=== PATIENT | female | born 1990 | race Caucasian/White ===

== ENCOUNTER 2025-04-17 07:40 | Emergency (ER) | payer MEDICAID ==
[~2025-04-17] VITALS: Ht 172.7 cm; Wt 65.1 kg
[2025-04-17 07:45] VITALS: TEMP 97.7
--- NOTE | 2025-04-17 08:23 | Physician Documentation ---
History of Present Illness ~ General Chief Complaint: See Chief Complaint Stated Complaint: CONGESTION Time Seen by MD: 08:22 OK to notify your PCP?: Yes Source: patient, RN/MD, RN notes reviewed, old records Mode of Arrival: POV Exam Limitations: no limitations History of Present Illness Initial Comments This pleasant 35-year-old female who is homeless in multiple cities states that she has been feeling weak tired fatigued she does not have access to her nebulizer or metered-dose inhaler she has been having a cough congestion for the last several days or so she feels short of breath when she lays down. She is producing white sputum. She thinks she has COVID has been exposed to it. She is here for evaluation has no other complaints at this time. She denies any fevers or chills. She is wearing a mask. He is now here for evaluation and care. She states she has a UTI at another hospital but was never treated or she never picked up the antibiotics. He has no urinary symptoms at this time. Her last menstrual period was three weeks ago. She denies a chance of . Medication Reconciliation Allergies: Uncoded Allergies: PCN (Allergy, Severe, 04/17/25) Scheduled Dexamethasone* (Decadron*), 2 TAB PO DAILY Hydroxyzine Hcl* (Atarax*), 1 TAB PO HSMR1 Scheduled PRN albuterol inhaler (Pro-Air Inhaler), 1-2 PUFFS PO Q4H PRN for shortness of breath Past Medical History Past Medical History: Asthma Other Past Medical History: Endometriosis Other Past Surgical History: Ectopic Smoking Status: Never smoker Alcohol Use: None Drug Use: marijuana Review of Systems All Other Systems at this time: Reviewed and Negative Physical Exam Physical Exam Vital Signs: RN Vital Signs have been reviewed: Yes, Temperature: 97.7, Source: Temporal, Heart Rate: 82, Respiratory Rate: 15, BP: 114/77, Pulse Oximetry: 96, Weight: 65.080 Physical Exam General: The patient is well developed, well nourished, nontoxic appearing and is in no acute distress. Skin: [place], warm and dry with no rashes. HEENT: Head was normocephalic and atraumatic. Eyes - pupils equal, round, reactive to light and accommodation. Extraocular movements were intact. Conjunctivae were nonicteric. The mouth and oropharynx were clear with moist mucous membranes. There were no pharyngeal exudates or erythema. Neck: Supple and nontender. There was no jugular venous distention, lymphadenopathy, thyromegaly or masses. Chest: Clear to auscultation bilaterally without wheezes, rales or rhonchi. No accessory muscle use. No dullness to percussion. However trace rhonchi with cough short shallow breath sounds Heart: Rate regular and rhythmic. S1, S2. No murmurs. Palpation of the chest wall was normal. No rubs or thrills. Abdomen: Soft, nontender and nondistended. Positive bowel sounds. No guarding or rebound. No hepatosplenomegaly or palpable masses. Extremities: No cyanosis, clubbing or edema. The patient moves all extremities. Pulses were equal and symmetric. Neurologic: Motor sensory grossly intact. Psychologic: The patient was oriented to person, place and time. The patient d emonstrated appropriate judgement and insight. Progress Results/Orders Reviewed/noted all lab results: Yes Results/Orders Orders - MALLORIE PERLA MD Chest,Two Views (04/17/25 08:32) Svn Treatment (04/17/25 08:32) Completed Orders - MALLORIE PERLA MD Chest,Two Views (04/17/25 08:32) Ipratropium/Albuterol Nebule (Ipratrop/A (04/17/25 08:35) Urinalysis, Cult If Indicated (04/17/25 09:47) Dexamethasone Tablet (Decadron Tablet) (04/17/25 09:55) Medications Received in ER Medications (Trade) Dose Ordered Sig/Kalin Route PRN Reason Start Time Stop Time Status Last Admin Dose Admin (ipratrop/ albuterol 0.5-3(2.5) MG/3ml nebule) 3 ml ONCE ONCE NEB 04/17/25 08:35 04/17/25 08:36 DC 04/17/25 08:57 3 ML Vital Signs 04/17/25 04/17/25 04/17/25 04/17/25 07:45 08:22 08:22 09:01 Temp 97.7 Pulse 82 68 68 Resp 15 17 18 21 B/P (MAP) 114/77 106/83 (91) Pulse Ox 96 99 100 O2 Delivery Room Air* O2 Flow Rate 0 0 FiO2 N/A 04/17/25 09:06 Pulse 76 Resp 20 Pulse Ox 100 O2 Delivery Room Air* O2 Flow Rate 0 FiO2 N/A Laboratory Tests Test 04/17/25 08:37 Urine Specimen Description Cln catch midstream Urine Color Yellow Urine Clarity Clear Urine pH 6.0 Urine Specific [place] 1.020 Urine Protein Negative Urine Glucose (UA) Negative Urine Ketones Negative Urine Occult Blood Negative Urine Nitrite Negative Urine Bilirubin Negative Urine Urobilinogen 0.2 Urine Leukocyte Esterase Negative Urine Culture Indicated Not ind Volume Urine Centrifuged 10 ml Urine Comment SARS-CoV-2 Antigen (Rapid) Positive *A Re-Evaluation Re-Evaluation : Re-Evaluation: Improved Progress Patient was seen and examined. Patient is given reassurance. The patient was given steroids. The patient received a neb treatment. Her breath sounds were a bit tight but otherwise negative exam. Patient is oxygen saturation was reassuring at 97% room air. Patient was found to have COVID. Patient was given steroids. Discharge medications included metered-dose inhaler including steroids also patient complained of insomnia and allergy type of complaints and was requesting a refill on hydroxyzine. Patient appears well oxygenation is good we discussed COVID and exposures to other people who are susceptible. Patient will return if her symptoms worsens. Pulse oximetry monitor interpretation shows normal oxygenation at 97% room air, normal, my interpretation. Urinalysis is negative EKG/XRAY/CT/US/VASC/MRI Chest X-Ray : Additional Comments Indication: CHEST PAIN Technique: Frontal and lateral view of the chest was obtained Comparison: None FINDINGS: Lines and Tubes: None Lungs: Clear Pleura: No effusion. No pneumothorax. Cardiomediastinal contours: Unremarkable Bones: Unremarkable IMPRESSION: No evidence of acute disease. Medical Decision Making Additional info obtained from: old records Departure Disposition: HOME / SELF CARE / HOMELESS Impression: Primary Impression: Asthma Qualified Codes: J45.20 - Mild intermittent asthma, uncomplicated Additional Impressions: COVID Seasonal allergies Condition: Stable Referrals: NO PRIMARY CARE PROVIDER (PCP) Prescriptions Dexamethasone* (Decadron*) 4 Mg Tablet 2 TAB PO DAILY for 5 Days, #10 TAB Prov: MALLORIE PERLA MD 04/17/25 Hydroxyzine Hcl* (Atarax*) 25 Mg Tablet 1 TAB PO HSMR1 for 30 Days, #60 TAB Prov: MALLORIE PERLA MD 04/17/25 albuterol inhaler (Pro-Air Inhaler) 8.5 Gm Inhaler 1-2 PUFFS PO Q4H PRN for shortness of breath, #1 INH Prov: MALLORIE PERLA MD 04/17/25 Education Educated: Patient Educated regarding: diagnosis, need for follow up Signature Scribe Signature: , Attestation: The note accurately reflects work and decisions made by me.Mallorie Perla MD 04/17/25 08:23 MALLORIE PERLA MD Apr 17, 2025 08:23
[2025-04-17] MEDS: ipratropium/albuterol 3ml nebule NEB ONE (08:57)
[2025-04-17 09:01] VITALS: PULSE 68; RESP 21; O2SAT 100
[2025-04-17 09:06] VITALS: PULSE 76; RESP 20; O2SAT 100
--- NOTE | 2025-04-17 09:35 | RADIOLOGY REPORT ---
CHEST RADIOGRAPH Indication: CHEST PAIN Technique: Frontal and lateral view of the chest was obtained Comparison: None FINDINGS: Lines and Tubes: None Lungs: Clear Pleura: No effusion. No pneumothorax. Cardiomediastinal contours: Unremarkable Bones: Unremarkable IMPRESSION: No evidence of acute disease.
[2025-04-17] MEDS ORDERED: HYDR-3686 PO (09:53)
[2025-04-17] MEDS ORDERED: ALBU8HFA PO (09:53)
[2025-04-17] MEDS ORDERED: DEC4T PO (09:53)
[2025-04-17 10:08] LABS: LEUKOCYTE ESTERASE ,URINE NEGATIVE (Neg); NITRITES, URINE NEGATIVE (Neg); OCCULT BLOOD,URINE NEGATIVE (Neg)
[2025-04-17 10:13] LABS: UA COLLECTION TYPE CLN CATCH MIDSTREAM
[2025-04-17 10:37] VITALS: BP 114/68; PULSE 61; RESP 17; O2SAT 99
[2025-04-18] MEDS ORDERED: ROBDML PO (11:41)
== END 2025-04-17 10:43 | disposition home or self-care (01) ==
LOC: ER 07:42
DX: U07.1 COVID-19 (principal); J45.909 Unspecified asthma, uncomplicated; F12.90 Cannabis use, unspecified, uncomplicated; Z20.822 Contact with and (suspected) exposure to COVID-19
CPT/HCPCS: 36415; 71046; 81003; 87811; 94640; 94760; 99284

== ENCOUNTER 2025-04-18 09:19 | Emergency (ER) | payer MEDICAID ==
[~2025-04-18] VITALS: Ht 172.7 cm; Wt 78.2 kg
[~2025-04-18 09:19] MED LIST: ALBU8HFA PO; DEC4T PO; HYDR-3686 PO
[2025-04-18 09:30] VITALS: BP 109/68; TEMP 97.4
[2025-04-18] MEDS ORDERED: ipratropium/albuterol 3ml nebule NEB PRN (09:45)
[2025-04-18] MEDS: ibuprofen tablet 400 MG TABLET PO ONE (09:49)
--- NOTE | 2025-04-18 09:49 | Physician Documentation ---
HPI ~ General Chief Complaint: Medication Request Stated Complaint: BREATHING TREATMENT Time Seen by MD: 09:35 OK to notify your PCP?: Yes Source: patient Mode of Arrival: POV Exam Limitations: no limitations History of Present Illness HPI Comments 35-year-old female presents for shortness of breath, productive cough, she has asthma in his requesting a breathing treatment. She was seen here yesterday and diagnosed with the COVID which she has been having symptoms for the past 3 days. She was prescribed a inhaler but due to insurance difficulty she was unable to pick it up at the pharmacy yesterday. She states that she is feeling worse today than she did yesterday in his having more trouble breathing today. Yesterday she had a fever today she has no fever. She has not taken any medications prior to arrival for her symptoms. Denies cardiac history. She reports she did stay in a place for 2 weeks that had black mold. Medication Reconciliation Allergies: Coded Allergies: Penicillins (Verified Allergy, Unknown, ANAPHALAXIS, 04/18/25) Scheduled Dexamethasone* (Decadron*), 2 TAB PO DAILY Hydroxyzine Hcl* (Atarax*), 1 TAB PO HSMR1 Scheduled PRN Guaifenesin/D-Methorphan Hb (Robitussin Dm), 5 ML PO Q6H PRN PRN for cough & congestion albuterol inhaler (Pro-Air Inhaler), 1-2 PUFFS PO Q4H PRN for shortness of breath Past Medical History Past Medical History: Asthma Other Past Surgical History: Ectopic Alcohol Use: None Drug Use: marijuana Review of Systems All Other Systems at this time: Reviewed and Negative Physical Exam Physical Exam Vital Signs: RN Vital Signs have been reviewed: Yes, Temperature: 97.4, Source: Temporal, Heart Rate: 79, Respiratory Rate: 20, BP: 109/68, Pulse Oximetry: 98, Weight: 78.200 Oxygen Flow Rate: 0 Pulse Oximetry Reflects: adequate oxygenation Physical Exam General: Alert, no apparent distress. HEENT: PERRL, EOMI, no injection, moist mucous membranes. Neck: Full range of motion. Respiratory: No respiratory distress. Bilateral expiratory and inspiratory wheezes. Right lower lobe has inspiratory crackles. Chest: No accessory muscle use. Cardiovascular: Regular rate and rhythm, no murmurs. Gastrointestinal: Soft, nontender, nondistended. Bowels sounds present. Extremities: Normal range of motion, no deformity. Neurologic: Oriented x4. Psychiatric: Normal mood and affect. Skin: Normal color, warm and dry. No edema, no ecchymosis. Progress Results/Orders Reviewed/noted all lab results: Yes Results/Orders Orders - JIE WALSH PERFORMAN[employer] CONSULTANT Chest,Single View (04/18/25 09:42) Completed Orders - JIE WALSH PERFORMANCE CONSULTANT Chest,Single View (04/18/25 09:42) Ibuprofen Tablet (Motrin Tablet) (04/18/25 09:45) Ipratropium/Albuterol Nebule (Ipratrop/A (04/18/25 09:45) Ipratropium/Albuterol Nebule (Ipratrop/A (04/18/25 10:50) Medications Received in ER Medications (Trade) Dose Ordered Sig/Kalin Route PRN Reason Start Time Stop Time Status Last Admin Dose Admin (Motrin tablet) 800 mg ONCE ONCE PO 04/18/25 09:45 04/18/25 09:46 DC 04/18/25 09:49 800 MG (ipratrop/ albuterol 0.5-3(2.5) MG/3ml nebule) 3 ml ONCE NEB 04/18/25 10:50 04/18/25 11:48 DC 04/18/25 10:55 3 ML Vital Signs 04/18/25 04/18/25 04/18/25 09:30 10:56 11:01 Temp 97.4 Pulse 79 68 57 Resp 20 18 18 B/P (MAP) 109/68 Pulse Ox 98 98 98 O2 Delivery Room Air* Room Air* O2 Flow Rate 0 0 0 FiO2 21 21 EKG/XRAY/CT/US/VASC/MRI Chest X-Ray : Additional Comments Chest x-ray: as interpreted by me; no large effusion, no large infiltrate, normal mediastinum. Medical Decision Making Additional info obtained from: old records Findings 35-year-old female who returns for COVID symptoms, shortness of breath. She is requesting an albuterol treatment as she was unable to pic up her prescription at the pharmacy due to insurance issues for the albuterol inhaler. She reports that she is unable to afford any [id number] medications in his requesting Robitussin D to be ordered. I ordered this to her pharmacy. As she was feeling worse today than she was yesterday I repeated the chest x-ray. Physical exam she was having bilateral inspiratory and expiratory wheezes and she had right lower lobe crackles. Her chest x-ray was clear. I gave her a DuoNeb treatment instead of albuterol to help dry up her cough. She reports that she was feeling much better after the treatment. I also gave her some ibuprofen to help with her general discomfort. Differential Dx:Considerations: Include: Adverse circumstances, Economic, Medical services unavail., Medication refill, Medication non-compliance Departure Disposition: HOME / SELF CARE / HOMELESS Impression: Primary Impression: Asthma Additional Impression: COVID Condition: Stable Discharge Instructions: Upper Respiratory Infection, Adult, [id number] Additional Instructions: Return back here for any new or worsening symptoms. Please follow up your insurance on Saturday so you can get your albuterol inhaler prescription. COVID is a virus and is usually self-limiting about 7-10 days before your feeling completely normal again. If you develop a worsening cough Robitussin D can be very helpful or honey. You can continue to use Tylenol and/or ibuprofen for pain relief and fever control. Referrals: NO PRIMARY CARE PROVIDER (PCP) Prescriptions Guaifenesin/D-Methorphan Hb (Robitussin Dm) 10 Ml Syrup 5 ML PO Q6H PRN PRN for cough & congestion for 6 Days, #120 ML NEEDED Prov: JIE WALSH 04/18/25 Education Educated: Patient Educated regarding: diagnosis, treatment, prognosis, need for follow up Additional Comment Medical Screen Exam This patient recieved a medical screening examination. After reviewing the individual's medical complaints with presenting symptoms and performing an appropriate physical examination, it was determined that no immediate life-t hreatening emergency medical condition is present. This individual is also not a women having contractions. Signature Scribe Signature: . Attestation: Scribed for Jie Walshp by Jie Grant NP . 04/18/25 11:56 Parts of this note were created using [employer] voice recognition software program. While efforts were made to correct any mistakes made by this voice recognition software program, nonsensical phrases may remain in this note. In addition, there may be errors and syntax, grammar, content and spelling. JIE WALSH [facility] Apr 18, 2025 09:49
--- NOTE | 2025-04-18 10:08 | RADIOLOGY REPORT ---
CHEST RADIOGRAPH Indication: covid+, sob Technique: Single frontal view of the chest was obtained COMPARISON: DI CHEST,TWO VIEWS on DOS: 04/17/25 FINDINGS: Lines and Tubes: None Lungs: Clear Pleura: No effusion. No pneumothorax. Cardiomediastinal contours: Unremarkable Bones: Unremarkable IMPRESSION: 1. No acute disease.
[2025-04-18] MEDS: ipratropium/albuterol 3ml nebule NEB SCH (10:55)
[2025-04-18 10:56] VITALS: PULSE 68; RESP 18; O2SAT 98
[2025-04-18 11:01] VITALS: PULSE 57; RESP 18; O2SAT 98
[2025-04-18] MEDS ORDERED: ROBDML PO (11:41)
== END 2025-04-18 11:45 | disposition home or self-care (01) ==
LOC: ER 09:20
DX: U07.1 COVID-19 (principal); J45.909 Unspecified asthma, uncomplicated; Z88.0 Allergy status to penicillin
CPT/HCPCS: 71045; 94640; 94760; 99283

== ENCOUNTER 2025-04-26 15:15 | Emergency (ER) | payer MEDICAID ==
[~2025-04-26] VITALS: Ht 172.7 cm; Wt 77.3 kg
[~2025-04-26 15:15] MED LIST changes: -DEC4T PO
[2025-04-26 15:20] VITALS: BP 131/81; PULSE 78; RESP 16; TEMP 98.4; O2SAT 99
--- NOTE | 2025-04-26 15:28 | Physician Documentation ---
History of Present Illness ~ Chief Complaint: Nose Pain Stated Complaint: SINUS INFECTION Time Seen by MD: 16:03 HPI This is a 35-year-old female who presents with one-week of bilateral sinus pain and pressure. Patient states the pressure is worse on the right maxillary sin us. Patient states symptoms have been going on for a little over a week and denies any fevers or chills or shortness of breath or chest pain or abdominal pain or nausea, vomiting, diarrhea. Patient has no other concern or complaint at this time. Medication Reconciliation Allergies: Coded Allergies: Penicillins (Verified Allergy, Unknown, ANAPHALAXIS, 04/26/25) Scheduled Hydroxyzine Hcl* (Atarax*), 1 TAB PO HSMR1 Scheduled PRN albuterol inhaler (Pro-Air Inhaler), 1-2 PUFFS PO Q4H PRN for shortness of breath Discontinued Medications Dexamethasone* (Decadron*), 2 TAB PO DAILY Discontinued Reason: Auto Discontinued Guaifenesin/D-Methorphan Hb (Robitussin Dm), 5 ML PO Q6H PRN PRN for cough & congestion Discontinued Reason: Auto Discontinued Past Medical History Past Medical History: Asthma Other Past Surgical History: Ectopic Alcohol Use: None Drug Use: marijuana Review of Systems ROS As stated above in the HPI, otherwise all systems are reviewed and negative. Constitutional: Denies: chills, fever, weakness Eyes: Denies: pain, blurred vision ENT: Denies: ear pain, nose pain, throat pain, mouth pain Respiratory: Denies: cough, shortness of breath Cardiovascular: Denies: chest pain, palpitations Gastrointestinal: Denies: abdominal pain, nausea, vomiting Genitourinary: Denies: burning, dysuria Female Genitalia: Denies: vaginal discharge, pelvic pain Neurological: Denies: headache, dizziness Musculoskeletal: Denies: pain, swelling Integumentary: Denies: rash, lesions Allergic/Immunologic: Denies: hives, itching Hematologic/Lymphatic: Denies: no symptoms reported Psychiatric: Denies: depression, anxiety Physical Exam Vital Signs: Temperature: 98.4, Source: Temporal, Heart Rate: 78, Respiratory Rate: 16, BP: 131/81, Pulse Oximetry: 99, Weight: 77.270 Oxygen Flow Rate: 0 Physical Exam General: Awake and Alert, no acute distress. HEENT: Patient on exam does have significant tenderness to palpation of the right maxillary sinus and frontal sinuses. Patient's turbinates are boggy. Conjunctiva pink, Sclera clear, Mucus Membranes moist. Neck: Supple without masses and tenderness. Resp: Unlabored. Lungs clear to auscultation bilaterally. Heart: Regular Rate and rhythm, normal S1 and S2 without murmur, rub or gallop. Abdomen: Soft and non tender no organomegaly Extremities: No cyanosis,clubbing or edema. Skin: Warm and Dry. Progress Results/Orders Results/Orders Vital Signs 04/26/25 15:20 Temp 98.4 Pulse 78 Resp 16 B/P (MAP) 131/81 Pulse Ox 99 O2 Flow Rate 0 Medical Decision Making Findings This is a 35-year-old female who presents with one-week of bilateral sinus pain and pressure. Patient states the pressure is worse on the right maxillary sinus. Patient states symptoms have been going on for a little over a week and denies any fevers or chills or shortness of breath or chest pain or abdominal pain or nausea, vomiting, diarrhea. Patient has no other concern or complaint at this time. Patient was given dose of azithromycin 500 mg one tab by mouth in the ED tonight. Prescription of azithromycin sent to patient's pharmacy to be taken as directed one tab by mouth for two more days. Patient will follow up with primary care in 2-5 days if no better as needed sooner. Return to ED with any worsening, concerning or changing symptoms. Departure Disposition: HOME / SELF CARE / HOMELESS Impression: Primary Impression: Sinusitis Qualified Codes: J01.00 - Acute maxillary sinusitis, unspecified Condition: Improved Discharge Instructions: Sinus Infection, Adult, [id number] Additional Instructions: Patient was given dose of azithromycin 500 mg one tab by mouth in the ED tonight. Prescription of azithromycin sent to patient's pharmacy to be taken as directed one tab by mouth for two more days. Patient will follow up with primary care in 2-5 days if no better as needed sooner. Return to ED with any worsening, concerning or changing symptoms. Referrals: NO PRIMARY CARE PROVIDER (PCP) Prescriptions Azithromycin (Zithromax) 250 Mg Tablet 2 TAB PO DAILY for 2 Days, #4 TAB Prov: SHERYL ARMAS 04/26/25 Signature Scribe Signature: No scribe Attestation: No scribe NAOMY VILLALBA Apr 26, 2025 15:28 SHERYL ARMAS [facility] Apr 26, 2025 16:58
[2025-04-26] MEDS ORDERED: AZIT-164 PO (17:03)
== END 2025-04-26 17:16 | disposition home or self-care (01) ==
LOC: ER 15:17
DX: J32.0 Chronic maxillary sinusitis (principal); J32.1 Chronic frontal sinusitis; J45.909 Unspecified asthma, uncomplicated; F12.90 Cannabis use, unspecified, uncomplicated; Z87.59 Personal history of other complications of pregnancy, childbirth and the puerperium; Z88.0 Allergy status to penicillin
CPT/HCPCS: 99283

== ENCOUNTER 2025-05-06 07:17 | Emergency (ER) | payer MEDICAID ==
[~2025-05-06] VITALS: Ht 172.7 cm; Wt 77.3 kg
[2025-05-06 07:25] VITALS: TEMP 97.9
--- NOTE | 2025-05-06 07:31 | Physician Documentation ---
History of Present Illness ~ Chief Complaint: Foot pain Stated Complaint: FOOT PAIN Time Seen by MD: 07:27 HPI This is a pleasant homeless 35-year-old female who presents for evaluation of bilateral feet pain, that she describes as pins and needles, that has been present for several months, because she has to walk everywhere. Palliated with the position of comfort. Ibuprofen helps. However for the last couple of days she had developed occult "ellow bubble on the back of her left heel that is much more painful and impedes her ambulation. Did not attempt to treat it with the antibiotics. Allergic to penicillins. LMP: A month ago Denies any other symptoms such as fever, chills, chest pain, difficulty breathing, nausea, vomiting, diarrhea, abdominal pain. She denies any concerns for tobacco, alcohol or illicit substances use. Tetanus witin 5 years: Yes Medication Reconciliation Allergies: Coded Allergies: Penicillins (Verified Allergy, Unknown, ANAPHALAXIS, 04/26/25) Scheduled Hydroxyzine Hcl* (Atarax*), 1 TAB PO HSMR1 Scheduled PRN albuterol inhaler (Pro-Air Inhaler), 1-2 PUFFS PO Q4H PRN for shortness of breath Discontinued Medications Azithromycin (Zithromax), 2 TAB PO DAILY Discontinued Reason: Auto Discontinued Past Medical History Past Medical History: Asthma Other Past Surgical History: Ectopic Alcohol Use: None Drug Use: marijuana Review of Systems ROS 10 point review of systems was performed and unless noted above in HPI is neg ative for acute process/complaint. Physical Exam Vital Signs: Temperature: 97.9, Source: Temporal, Heart Rate: 70, Respiratory Rate: 18, BP: 120/65, Pulse Oximetry: 99, Weight: 77.270 Oxygen Flow Rate: 0 Physical Exam Physical examination: GENERAL: Awake, alert, oriented, GCS 15, no apparent distress, non-toxic appearing, answers questions, follows commands appropriately. Pleasant and well kept. No stigmata of homelessness. HEENT: Atraumatic, normocephalic, pupils equal, extraocular muscles intact Active gross movements, sclerae anicteric, mucus membranes moist, no stridor. NECK: Midline, no JVD CARDIOVASCULAR: Good skin perfusion without evidence of pallor, mottling. PULMONARY: Nonlabored, symmetric chest rise, no audible wheezing, no accessory muscle use, no respiratory distress, speaking in full sentences. GASTROINTESTINAL: Not distended. NEUROLOGIC: Lucid with normal mental status. Normal facial symmetry. Moves all extremities symmetrically and with purpose. No truncal ataxia. Speech is fluid without evidence of dysarthria or aphasia, no focal deficits appreciated. EXTREMITIES: Acute deformities Skin: warm, dry PSYCHIATRIC: Normal affect, normal insight, normal concentration. Focused exam: Erythema surrounding her left heel, calor, no obvious fluctuance to suspect an abscess. No crepitus. Full range of motion. Palpation notes that it is tender reproducing chief complaint. Progress Results/Orders Results/Orders Orders - HOMAR TRISTAN DO Hcg, Ur Ql (05/06/25 07:27) Drug Screen, Urine (05/06/25 07:27) Completed Orders - HOMAR TRISTAN DO Urinalysis, Cult If Indicated (05/06/25 07:27) Vital Signs 05/06/25 07:25 Temp 97.9 Pulse 70 Resp 18 B/P (MAP) 120/65 Pulse Ox 99 O2 Flow Rate 0 Laboratory Tests Test 05/06/25 07:07 Urine Specimen Description Cln catch midstream Urine Color Straw Urine Clarity Clear Urine pH 7.5 Urine Specific [place] 1.010 Urine Protein Negative Urine Glucose (UA) Negative Urine Ketones Negative Urine Occult Blood Negative Urine Nitrite Negative Urine Bilirubin Negative Urine Urobilinogen 0.2 Urine Leukocyte Esterase Negative Urine Culture Indicated Not ind Volume Urine Centrifuged 10 ml Urine HCG, Qualitative Negative Urine Comment Drug Screen Comment Medical Decision Making Findings Facility Status: ED Holds, [facility] process The plan was discussed with the patient, who demonstrates clear understanding of the plan and is in agreement with the plan unless otherwise noted in the chart. All questions have been answered, all concerns were addressed unless otherwise documented. I was available throughout their ED stay for frequent reassessment and questions. Differential Diagnoses (considered and possible or likely): [Heel cellulitis, less likely abscess, less likely necrotizing infection, unlikely to be osteomyel itis.] ??Differential Diagnoses (considered and unlikely, not requiring evaluation currently): [No evidence of traumatic injury] [facility] Data Please see HPI for the following: Independent Historians and external Records Review. Historian: [Patient] Independent Historians: ?[None] Medication Management: [Reviewed medication list] Social History and determinants: [Reviewed] Please see the body of the note for the following: Any independent interpretations of ECG, imaging studies. All vitals signs/haemodynamics, ordered tests were independently reviewed and interpreted by myself. Nursing triage complaint and vitals reviewed, additional nursing notes were reviewed as available and I agree unless otherwise noted or documented in contradiction in the chart Vital Signs: Independently reviewed Labs: Independently interpreted Imaging: Independently interpreted Old Medical Records: Independently reviewed, see HPI for relevant summary and i nformation Pulse Oximetry: [100%] interpreted as [normal on room air] by me Additionally notably showing: [Hemodynamically stable] Tests considered but not ordered include: [Hematologic workup and imaging has been considered but does not appear to be necessary given clinical nature of diagnosis] Social Determinants of Health Impact: Patient was evaluated in [facility], [facility] [place] to healthcare due to below par ratio of patient to medical providers. [] Comorbid Conditions Impacting Present Evaluation and Care/Treatment: [] Management Discussions with other Healthcare Providers: [Not] Treatment and Disposition Medication Management (Given or considered): []. See EMR for details Consideration for Hospitalization/Escalation/Deescalation of Care: Admission for observation has been considered, [however the patient is able to tolerate p.o., their symptoms are controlled, they are able to rely on oral medications, and their chief complaint/diagnosis can be managed on outpatient basis.] ?ED Course:?[No clinical deterioration] patient is allergic to penicillins. We will have to check for . ?Shared decision making:?[Patient is hemodynamically stable for discharge home with follow with their primary care provider. [ ] Specific and cautious return precautions provided and discussed with full understanding. Any incidental fin dings were also discussed and follow up recommendations given. [] All questions answered. Patient/family were able to verbalize back return precautions. Patient/family agree to plan. Copies of imaging and laboratory studies were provided.] Code status:?FULL Please see the full Electronic Medical Record for full details of nursing documentation, medications list, other records of complete past medical history and conditions, vital signs, laboratory studies, and any radiologic study interpretations by radiologists. Portions of this note were completed using [facility] dictation software and as a result there may exist minor errors in s pelling. I have reviewed elements of past family and social history and agree as included in note. Departure Disposition: 01 HOME / SELF CARE / HOMELESS Impression: Primary Impression: Cellulitis of heel, left Condition: Improved Discharge Instructions: Cellulitis Referrals: NO PRIMARY CARE PROVIDER (PCP) Prescriptions Sulfamethoxazole/Trimethoprim (Bactrim Ds Tablet) 800 Mg-160 Mg Tablet 1 TAB PO Q12H for 7 Days, #14 TAB Prov: HOMAR TRISTAN DO 05/06/25 Education Educated: Patient Educated regarding: diagnosis, treatment, prognosis, need for follow up Signature Scribe Signature: No scribe Attestation: This note accurately reflects clinical decisions, work performed by myself, Homar Tristan, HOMAR MCDANIEL DO May 06, 2025 07:31
[2025-05-06 07:53] LABS: LEUKOCYTE ESTERASE ,URINE NEGATIVE (Neg); NITRITES, URINE NEGATIVE (Neg); OCCULT BLOOD,URINE NEGATIVE (Neg)
[2025-05-06 07:57] LABS: UA COLLECTION TYPE CLN CATCH MIDSTREAM
[2025-05-06 07:59] LABS: URINE HCG NEGATIVE (NEG)
[2025-05-06 08:05] LABS: URINE AMPHETAMINE SCREEN NEGATIVE (Neg); URINE BARBITUATE SCREEN NEGATIVE (Neg); URINE BENZODIAZEPINES SCREEN NEGATIVE (Neg); URINE CANNABINOID SCREEN POSITIVE (Neg); URINE COCAINE SCREEN NEGATIVE (Neg); URINE METHADONE SCREEN NEGATIVE (Neg); URINE OPIATE SCREEN NEGATIVE (Neg); URINE PHENCYCLIDINE SCREEN NEGATIVE (Neg)
[2025-05-06] MEDS ORDERED: SULF1TAB49 PO (08:06)
[2025-05-06 08:24] VITALS: BP 108/60; PULSE 81; RESP 18; O2SAT 100
[2025-05-07] MEDS ORDERED: ALBU8HFA PO (14:26)
== END 2025-05-06 08:26 | disposition home or self-care (01) ==
LOC: ER 07:17
DX: L03.116 Cellulitis of left lower limb (principal); J45.909 Unspecified asthma, uncomplicated; F12.90 Cannabis use, unspecified, uncomplicated; Z88.0 Allergy status to penicillin; Z79.899 Other long term (current) drug therapy; Z59.00 Homelessness unspecified
CPT/HCPCS: 80305; 81003; 81025; 99283

== ENCOUNTER 2025-05-07 12:53 | Emergency (ER) | payer MEDICAID ==
[~2025-05-07] VITALS: Ht 172.7 cm; Wt 77.2 kg
[~2025-05-07 12:53] MED LIST changes: +SULF1TAB49 PO
[2025-05-07 13:12] VITALS: BP 118/80; PULSE 90; RESP 14; O2SAT 100
[2025-05-07] MEDS ORDERED: ALBU8HFA PO (14:26)
--- NOTE | 2025-05-07 14:27 | Physician Documentation ---
History of Present Illness ~ Chief Complaint: Cold, cough & congestion Stated Complaint: BREATHING TREATMENT-ASTHMA Time Seen by MD: 14:08 HPI This is a 35-year-old female with a history of asthma who presents with two days of cough and scratchy throat, patient reports occasional chills without fever, patient reports that she has had some wheezing and feeling of asthma exacerbation and is without her usually prescribed albuterol inhaler. Patient reports no other acute symptoms or concerns including no difficulty breathing fo r chest pain. Medication Reconciliation Allergies: Coded Allergies: Penicillins (Verified Allergy, Unknown, ANAPHALAXIS, 04/26/25) Scheduled Hydroxyzine Hcl* (Atarax*), 1 TAB PO HSMR1 Sulfamethoxazole/Trimethoprim (Bactrim Ds Tablet), 1 TAB PO Q12H Scheduled PRN albuterol inhaler (Pro-Air Inhaler), 1-2 PUFFS PO Q4H PRN for shortness of breath albuterol inhaler (Pro-Air Inhaler), 1-2 PUFFS PO Q4H PRN for shortness of breath Past Medical History Past Medical History: Asthma Other Past Surgical History: Ectopic Alcohol Use: None Drug Use: marijuana Review of Systems ROS As stated above in the HPI, otherwise all systems are reviewed and negative. Physical Exam Vital Signs: Temperature: 97.6, Source: Temporal, Heart Rate: 90, Respiratory Rate: 14, BP: 118/80, Pulse Oximetry: 100, Weight: 77.200 Oxygen Flow Rate: 0 Physical Exam VITALS: Reviewed and as above. GENERAL: Alert, nontoxic appearing, no apparent distress. HEENT: Pharynx nonerythematous, no tonsillar swelling or exudates RESPIRATORY: No increased work of breathing, no respiratory distress, speaking in full clear sentences, clear lung sounds in all watkins, no wheezing, no stridor CV: Regular rate and rhythm no murmur Progress Results/Orders Results/Orders Vital Signs 05/07/25 05/07/25 13:12 14:33 Temp 97.6 97.6 Pulse 90 Resp 14 B/P (MAP) 118/80 Pulse Ox 100 O2 Flow Rate 0 Laboratory Tests Test 05/07/25 13:17 SARS-CoV-2 Antigen (Rapid) Negative Medical Decision Making Findings This 35 year-old female history of asthma, presented with two days of cough, scratchy throat, and occasional wheezing described as similar to feeling of asthma exacerbation. Patient reported occasional chills without fever, though it was reassuring patient reported no chest pain or shortness of breath, physical exam was benign with clear lung sounds in all watkins, patient is otherwise well appearing and symptoms are consistent with an uncomplicated upper respiratory tract infection with potential mild asthma exacerbation. Patient vital signs stable without evidence of hypoxia.As patient does not currently have a rescue inhaler, she will be discharged with a new rescue inhaler and provided home care instructions, and return precautions. Differential Dx:Considerations: Include: Allergic rhinitis, Influenza, Pharyngitis-Diphtheria, Pharyngitis-Streptoccal, Pharyngitis-Viral, Pneumonia, Pnuemonitis, URI Departure Time of Disposition: 14:27 Impression: Primary Impression: Acute respiratory infection Condition: Improved Discharge Instructions: Upper Respiratory Infection, Adult Additional Instructions: Please use the inhaler as needed for wheezing. You may use Tylenol and ibuprofen as needed for pain and fever as directed by [id number] packaging. Warm fluids and honey may help with sore throat and cough. Please see your primary care provider for asthma preventative medications. Please follow up with your primary care provider in the next few days. Please return to the emergency department for any new or worsening concerning symptoms. Referrals: NO PRIMARY CARE PROVIDER (PCP) Prescriptions albuterol inhaler (Pro-Air Inhaler) 8.5 Gm Inhaler 1-2 PUFFS PO Q4H PRN for shortness of breath, #1 INH Prov: NAOMY VILLALBA 05/07/25 Education Educated: Patient Educated regarding: diagnosis, treatment, prognosis, need for follow up Signature Scribe Signature: No Scribe Attestation: The note accurately reflects work and decisions made by me.JEAN CARLOS Florian 05/09/25 18:03 NAOMY VILLALBA May 07, 2025 14:27
[2025-05-07 14:33] VITALS: TEMP 97.6
== END 2025-05-07 14:34 | disposition home or self-care (01) ==
LOC: ER 12:54
DX: J22 Unspecified acute lower respiratory infection (principal); J45.909 Unspecified asthma, uncomplicated; F12.90 Cannabis use, unspecified, uncomplicated; Z88.0 Allergy status to penicillin; Z79.899 Other long term (current) drug therapy; Z20.822 Contact with and (suspected) exposure to COVID-19
CPT/HCPCS: 36415; 87811; 99283

== ENCOUNTER 2025-05-12 20:15 | Emergency (ER) | payer MEDICAID ==
[~2025-05-12] VITALS: Ht 172.7 cm; Wt 78.0 kg
[2025-05-12 20:35] VITALS: BP 114/73; PULSE 70; RESP 16; O2SAT 98
[2025-05-12] MEDS ORDERED: HYDR-3686 PO (21:27)
--- NOTE | 2025-05-12 21:27 | Physician Documentation ---
History of Present Illness ~ Chief Complaint: Anxiety Stated Complaint: PANIC ATTACK Time Seen by MD: 20:50 HPI Patient is seen today with complaints of increased anxiety. Patient states she currently has a prescription for hydroxyzine 25 mg once a day and states she is currently living at the [facility] in his there for a couple of more days and states she is being her asked and has increased anxiety. She denies any suicidal or homicidal ideation. She has no other concern or complaint at this time. Medication Reconciliation Allergies: Coded Allergies: Penicillins (Verified Allergy, Unknown, ANAPHALAXIS, 04/26/25) Scheduled Hydroxyzine Hcl* (Atarax*), 1 TAB PO HSMR1 Sulfamethoxazole/Trimethoprim (Bactrim Ds Tablet), 1 TAB PO Q12H Scheduled PRN albuterol inhaler (Pro-Air Inhaler), 1-2 PUFFS PO Q4H PRN for shortness of breath albuterol inhaler (Pro-Air Inhaler), 1-2 PUFFS PO Q4H PRN for shortness of breath Past Medical History Past Medical History: Asthma Other Past Surgical History: Ectopic Alcohol Use: None Drug Use: marijuana Review of Systems Constitutional: Denies: chills, fever, weakness Eyes: Denies: pain, blurred vision ENT: Denies: ear pain, nose pain, throat pain, mouth pain Respiratory: Denies: cough, shortness of breath Cardiovascular: Denies: chest pain, palpitations Gastrointestinal: Denies: abdominal pain, nausea, vomiting Genitourinary: Denies: burning, dysuria Female Genitalia: Denies: vaginal discharge, pelvic pain Neurological: Denies: headache, dizziness Musculoskeletal: Denies: pain, swelling Integumentary: Denies: rash, lesions Allergic/Immunologic: Denies: hives, itching Hematologic/Lymphatic: Denies: no symptoms reported Psychiatric: Denies: depression, anxiety Physical Exam Vital Signs: Temperature: 98.6, Source: Oral, Heart Rate: 70, Respiratory Rate: 16, BP: 114/73, Pulse Oximetry: 98, Weight: 78.050 Physical Exam General: Awake and Alert, no acute distress. HEENT: Conjunctiva pink, Sclera clear, Mucus Membranes moist. Neck: Supple without masses and tenderness. Resp: Unlabored. Lungs clear to auscultation bilaterally. Heart: Regular Rate and rhythm, normal S1 and S2 without murmur, rub or gallop. Extremities: No cyanosis,clubbing or edema. Skin: Warm and Dry. Progress Results/Orders Results/Orders Vital Signs 05/12/25 20:35 Temp 98.6 Pulse 70 Resp 16 B/P (MAP) 114/73 Pulse Ox 98 Medical Decision Making Findings Patient is seen today with complaints of increased anxiety. Patient states she currently has a prescription for hydroxyzine 25 mg once a day and states she is currently living at the [facility] in his there for a couple of more days and states she is being her asked and has increased anxiety. She denies any suicidal or homicidal ideation. She has no other concern or complaint at this time. Patient was given dose of hydroxyzine 50 mg one tab by mouth in the ED tonight. Patient will follow up with primary care for further eval and treatment of anxiety and possibly increased dose of hydroxyzine. Increased dose of hydroxyzine sent short prescription fill to patient's pharmacy 50 mg twice a day. Patient will return to ED with any worsening, concerning or changing symptoms. Departure Disposition: HOME / SELF CARE / HOMELESS Impression: Primary Impression: Anxiety attack Condition: Improved Discharge Instructions: Panic Attack Additional Instructions: Patient was given dose of hydroxyzine 50 mg one tab by mouth in the ED tonight. Patient will follow up with primary care for further eval and treatment of anxiety and possibly increased dose of hydroxyzine. Increased dose of hydroxyzine sent short prescription fill to patient's pharmacy 50 mg twice a day. Patient will return to ED with any worsening, concerning or changing symptoms. Referrals: NO PRIMARY CARE PROVIDER (PCP) Prescriptions Hydroxyzine Hcl (Atarax) 25 Mg Tablet 1-2 TAB PO Q12H for anxiety for 5 Days, #20 TAB 0 Refills Prov: SHERYL ARMAS 05/12/25 Signature Scribe Signature: No scribe Attestation: No scribe SHERYL ARMAS PAC May 12, 2025 21:27
[2025-05-12 22:00] VITALS: TEMP 98.6
== END 2025-05-12 22:14 | disposition home or self-care (01) ==
LOC: ER 20:15
DX: F41.0 Panic disorder [episodic paroxysmal anxiety] (principal); J45.909 Unspecified asthma, uncomplicated; F12.90 Cannabis use, unspecified, uncomplicated; Z88.0 Allergy status to penicillin
CPT/HCPCS: 99283; Q0177

== ENCOUNTER 2025-06-03 15:53 | Emergency (ER) | payer MEDICAID ==
[~2025-06-03] VITALS: Ht 172.7 cm; Wt 72.2 kg
[~2025-06-03 15:53] MED LIST changes: -SULF1TAB49 PO
[2025-06-03 16:20] VITALS: TEMP 97.4
--- NOTE | 2025-06-03 17:32 | Physician Documentation ---
History of Present Illness Chief Complaint: Abdominal Pain Stated Complaint: ASTHMA Time Seen by MD: 17:26 HPI Patient is a 35-year-old female that presents to the emergency department for a refill of her albuterol inhaler in for evaluation of concern for ectopic . Patient reports that she has had a tubal ligation. Patient reports that she has pain intermittently in her medial thighs this is unusual for her because she used to be a runner and work out regularly. Reports that this symptoms concerning for an ectopic for her presents sometimes that pain feels like it might radiate to her lower abdomen. Patient denies any consistent abdominal pain fever chills nausea vomiting dysuria breathing tenderness difficulty breathing shortness of breath or any other symptoms at this time. Medication Reconciliation Allergies: Coded Allergies: Penicillins (Verified Allergy, Unknown, ANAPHALAXIS, 04/26/25) Scheduled Hydroxyzine Hcl (Atarax), 1-2 TAB PO Q12H Scheduled PRN albuterol inhaler (Pro-Air Inhaler), 1-2 PUFFS PO Q4H PRN for shortness of breat h Past Medical History Past Medical History: Asthma Other Past Surgical History: Ectopic Alcohol Use: None Drug Use: marijuana Review of Systems ROS As stated above in the HPI, otherwise all systems are reviewed and negative. Physical Exam Vital Signs: Temperature: 97.4, Source: Temporal, Heart Rate: 79, Respiratory Rate: 18, BP: 121/78, Pulse Oximetry: 97, Weight: 72.200 Oxygen Flow Rate: 0 Physical Exam VITALS: Reviewed and as above. GENERAL: Alert, no apparent distress. HEENT: Normocephalic, atraumatic, PERRL, EOMI, dry mucosa, no erythema RESPIRATORY: Lungs clear, normal breath sounds, no respiratory distress. CHEST: No accessory muscle use, no retractions CV: Regular rate, rhythm, no edema, no murmur, No: JVD GI: Soft, non-tender, bowels sounds present, no rebound, guarding, or rigidity BACK: No CVA tenderness, or swelling MUSCULOSKELETAL No deformities, no edema SKIN: Warm and dry, no rash NEURO: Oriented x4, No motor or sensory deficit PSYCH: Normal mood and affect, no agitation Progress Results/Orders Results/Orders Orders - JOSH PARK NEURODIAGNOSTIC TECH Urinalysis, Cult If Indicated (06/03/25 16:37) Hcg, Ur Ql (06/03/25 16:37) Vital Signs 06/03/25 16:20 Temp 97.4 Pulse 79 Resp 18 B/P (MAP) 121/78 Pulse Ox 97 O2 Flow Rate 0 Medical Decision Making Findings Patient presents with lower abdominal pain/pelvic pain. Abdominal exam without peritoneal signs. No evidence of acute abdomen at this time. Well appearing. Patient with pelvic done with no CMT, adnexal tenderness, or vaginal discharge concerning for PID or TOA. Considered ovarian torsion but doubt given history and presentation. Given work up low suspicion for acute hepatobiliary disease (including acute cholecystitis), acute pancreatitis (neg lipase), PUD and gastric perforation, acute infectious processes (pneumonia, hepatitis, pyelonephritis), acute appendicitis, vascular catastrophe, bowel obstruction or viscus perforation, diverticulitis. Presentation not consistent with other acute, emergent causes of abdominal pain at this time. Patient's diagnosis at this time his most consistent with musculoskeletal discomfort in her thighs bilaterally this is her only consistent symptom today. Patient will follow up with her primary care provider. Patient will return to the emergency department with any worsening or recurrent symptoms or any additional concerning symptoms that we discussed here today i.e. abdominal pain cramping dysuria, back fever chills nausea vomiting diarrhea or any other concerning symptoms. Differential Dx:Considerations: Include: AAA, -Complete, - Incomplete, -Inevitable, -Missed, -Threatened, Abruptio placentae, Angina/[place], Aortic dissection, Appendicitis, Bowel obstruction, Cholangitis, Cholelithasis, Constipation, Diverticular disease, Esophageal rupture, Esophagitis, Gastritis/PUD, Gastroenteritis, GI hemorrhage, Hernia, Hepatitis, Inflammatory BD, Ischemic bowel, Ovarian cyst/torsion, Pancreatitis, PID, Porphyria, Trauma, intraabdominal, Urinary obstruction, Urinary tract infection, Urolithiasis, Other Departure Disposition: 01 HOME / SELF CARE / HOMELESS Impression: Primary Impression: Abdominal pain Additional Impressions: Musculoskeletal pain Thigh pain, musculoskeletal Medication refill Discharge Instructions: Musculoskeletal Pain Additional Instructions: Patient presents with lower abdominal pain/pelvic pain. Abdominal exam without peritoneal signs. No evidence of acute abdomen at this time. Well appearing. Patient with pelvic done with no CMT, adnexal tenderness, or vaginal discharge concerning for PID or TOA. Considered ovarian torsion but doubt given history and presentation. Given work up low suspicion for acute hepatobiliary disease (including acute cholecystitis), acute pancreatitis (neg lipase), PUD and gastric perforation, acute infectious processes (pneumonia, hepatitis, pyelonephritis), acute appendicitis, vascular catastrophe, bowel obstruction or viscus perforation, diverticulitis. Presentation not consistent with other acute, emergent causes of abdominal pain at this time. Patient's diagnosis at this time his most consistent with musculoskeletal discomfort in her thighs bilaterally this is her only consistent symptom today. Patient will follow up with her primary care provider. Patient will return to the emergency department with any worsening or recurrent symptoms or any additional concerning symptoms that we discussed here today i.e. abdominal pain cramping dysuria, back fever chills nausea vomiting diarrhea or any other concerning symptoms. Please follow up with her primary care provider. Please return to the emergency department with any worsening or recurrent symptoms or any additional concerning symptoms that we discussed here today. Referrals: NO PRIMARY CARE PROVIDER (PCP) Prescriptions albuterol inhaler (Pro-Air Inhaler) 8.5 Gm Inhaler 1-2 PUFFS PO Q4H PRN for shortness of breath for 90 Days, #1 INH Prov: JOSH PARK 06/03/25 Education Educated: Patient Educated regarding: diagnosis, treatment, need for follow up Signature Scribe Signature: N/A Attestation: N/A JOSH PARK Jun 03, 2025 17:32 DEMETRIUS GARCIA MD Jun 19, 2025 06:08
[2025-06-03] MEDS ORDERED: ALBU8HFA PO (17:35)
[2025-06-03 17:55] LABS: LEUKOCYTE ESTERASE ,URINE NEGATIVE (Neg); NITRITES, URINE NEGATIVE (Neg); OCCULT BLOOD,URINE NEGATIVE (Neg); URINE HCG NEGATIVE (NEG)
[2025-06-03 18:00] LABS: UA COLLECTION TYPE CLN CATCH MIDSTREAM
[2025-06-03 18:34] VITALS: BP 106/78; PULSE 84; O2SAT 99
[2025-06-03 18:35] VITALS: RESP 14
== END 2025-06-03 19:25 | disposition home or self-care (01) ==
LOC: ER 15:54
DX: R10.9 Unspecified abdominal pain (principal); M79.18 Myalgia, other site; M79.651 Pain in right thigh; M79.652 Pain in left thigh; J45.909 Unspecified asthma, uncomplicated; F12.90 Cannabis use, unspecified, uncomplicated; Z98.51 Tubal ligation status; Z88.0 Allergy status to penicillin; Z87.59 Personal history of other complications of pregnancy, childbirth and the puerperium
CPT/HCPCS: 81003; 81025; 99283; 99284

== ENCOUNTER 2025-06-07 00:22 | Emergency (ER) | payer MEDICAID ==
[~2025-06-07] VITALS: Ht 172.7 cm; Wt 79.5 kg
[2025-06-07 01:04] LABS: LEUKOCYTE ESTERASE ,URINE NEGATIVE (Neg); NITRITES, URINE NEGATIVE (Neg); OCCULT BLOOD,URINE NEGATIVE (Neg)
[2025-06-07 01:05] LABS: URINE HCG NEGATIVE (NEG)
[2025-06-07 01:09] LABS: UA COLLECTION TYPE CLN CATCH MIDSTREAM
[2025-06-07 02:36] LABS: MEAN PLATELET VOLUME 8.0 FL (7.4-10.4); RED CELL DISTRIBUTION WIDTH 17.7 % (11.5-14.5)
[2025-06-07 03:24] LABS: CREATININE 0.68 MG/DL (0.40-0.90); TOTAL CARBON DIOXIDE 25.5 MMOL/L (24-32); eCRCL 118 ML/MIN; eGFR > 90 ML/MIN
--- NOTE | 2025-06-07 11:58 | Physician Documentation ---
History of Present Illness ~ Chief Complaint: Vomiting Stated Complaint: NAUSEA,VOMITING Time Seen by MD: 11:48 Mode of Arrival: POV, Ambulatory HPI Patient is seen today with complaints of nausea and vomiting that started a few days ago. She states she thought she might have been and wanted to get checked out. She states she just feels kind of tired. She has no other concern or complaint at this time. She denies any chest pain or shortness of breath or current abdominal pain or diarrhea. She states she feels constipated but does admit to bowel movement yesterday. Medication Reconciliation Allergies: Coded Allergies: Penicillins (Verified Allergy, Unknown, ANAPHALAXIS, 04/26/25) Scheduled Hydroxyzine Hcl (Atarax), 1-2 TAB PO Q12H Scheduled PRN albuterol inhaler (Pro-Air Inhaler), 1-2 PUFFS PO Q4H PRN for shortness of breath Discontinued Medications albuterol inhaler (Pro-Air Inhaler), 1-2 PUFFS PO Q4H PRN for shortness of breath Discontinued Reason: Auto Discontinued Past Medical History Past Medical History: Asthma Other Past Surgical History: Ectopic Alcohol Use: None Drug Use: marijuana Review of Systems Constitutional: Denies: chills, fever, weakness Eyes: Denies: pain, blurred vision ENT: Denies: ear pain, nose pain, throat pain, mouth pain Respiratory: Denies: cough, shortness of breath Cardiovascular: Denies: chest pain, palpitations Gastrointestinal: Denies: abdominal pain, nausea, vomiting Genitourinary: Denies: burning, dysuria Female Genitalia: Denies: vaginal discharge, pelvic pain Neurological: Denies: headache, dizziness Musculoskeletal: Denies: pain, swelling Integumentary: Denies: rash, lesions Allergic/Immunologic: Denies: hives, itching Hematologic/Lymphatic: Denies: no symptoms reported Psychiatric: Denies: depression, anxiety Physical Exam Vital Signs: Temperature: 98.3, Source: Oral, Heart Rate: 65, Respiratory Rate: 16, BP: 120/71, Pulse Oximetry: 100, Weight: 79.500 Oxygen Flow Rate: 0 Physical Exam General: Awake and Alert, no acute distress. HEENT: Conjunctiva pink, Sclera clear, Mucus Membranes moist. Neck: Supple without masses and tenderness. Resp: Unlabored. Lungs clear to auscultation bilaterally. Heart: Regular Rate and rhythm, normal S1 and S2 without murmur, rub or gallop. Abdomen: Soft and non tender no organomegaly, abdomen is nondistended, no masses, no guarding and no rebound tenderness. Extremities: No cyanosis,clubbing or edema. Skin: Warm and Dry. Progress Results/Orders Results/Orders Vital Signs 06/07/25 06/07/25 06/07/25 06/07/25 00:46 03:24 05:42 11:47 Temp 98.2 98.3 Pulse 74 68 65 Resp 16 16 14 16 B/P (MAP) 105/66 127/75 (92) 120/71 (87) Pulse Ox 100 100 100 O2 Flow Rate 0 0 0 Laboratory Tests Test 06/07/25 00:49 06/07/25 01:53 Urine Specimen Description Cln catch midstream Urine Color Yellow Urine Clarity Clear Urine pH 5.5 Urine Specific [place] 1.025 Urine Protein Negative Urine Glucose (UA) Negative Urine Ketones Negative Urine Occult Blood Negative Urine Nitrite Negative Urine Bilirubin Negative Urine Urobilinogen 0.2 Urine Leukocyte Esterase Negative Urine Culture Indicated Not ind Volume Urine Centrifuged 10 ml Urine HCG, Qualitative Negative Urine Comment White Blood Count 7.1 Red Blood Count 4.80 Hemoglobin 12.8 Hematocrit 40.0 Mean Corpuscular Volume 83.3 Mean Corpuscular Hemoglobin 26.7 L Mean Corpuscular Hemoglobin Concent 32.1 L Red Cell Distribution Width 17.7 H Platelet Count 279 Mean Platelet Volume 8.0 Neutrophils (%) (Auto) 53.1 Lymphocytes (%) (Auto) 35.9 Monocytes (%) (Auto) 6.5 Eosinophils (%) (Auto) 3.9 Basophils (%) (Auto) 0.6 Neutrophils # (Auto) 3.8 Lymphocytes # (Auto) 2.6 Monocytes # (Auto) 0.5 Eosinophils # (Auto) 0.3 Basophils # (Auto) 0.0 CBC Comment Sodium Level 140 Potassium Level 4.0 Chloride Level 107 Carbon Dioxide Level 25.5 Anion Gap 8 Blood Urea Nitrogen 13 Creatinine 0.68 Estimated GFR/1.73 m2 > 90 BUN/Creatinine Ratio 19.1 Glucose Level 89 Calcium Level 8.7 Total Bilirubin 0.3 Aspartate Amino Transf (AST/SGOT) 19 Alanine Aminotransferase (ALT/SGPT) 26 Alkaline Phosphatase 63 Total Protein 8.3 H Albumin 4.0 Globulin 4.3 Albumin/Globulin Ratio 0.9 L Lipase 42 Chemistry Comments Medical Decision Making Findings Patient is seen today with complaints of nausea and vomiting that started a few days ago. She states she thought she might have been and wanted to get checked out. She states she just feels kind of tired. She has no other concern or complaint at this time. She denies any chest pain or shortness of breath or current abdominal pain or diarrhea. She states she feels constipated but does admit to bowel movement yesterday. Patient did have labs drawn that were largely unremarkable patient is test was negative. Urinalysis was unremarkable. Patient was given some Zofran and prescription for Zofran and will follow up follow up with primary care if no better in 2-3 days. Return to ED with any worsening, concerning or changing symptoms Departure Disposition: 01 HOME / SELF CARE / HOMELESS Impression: Primary Impression: Viral gastritis Condition: Stable Discharge Instructions: Gastritis, Adult Additional Instructions: Patient did have labs drawn that were largely unremarkable patient is test was negative. Urinalysis was unremarkable. Patient was given some Zofran and prescription for Zofran and will follow up follow up with primary care if no better in 2-3 days. Return to ED with any worsening, concerning or changing symptoms Referrals: NO PRIMARY CARE PROVIDER (PCP) Signature Scribe Signature: No scribe Attestation: No scribe SHERYL ARMAS PAC Jun 07, 2025 11:58
[2025-06-07] MEDS: ondansetron 4mg rapidly disintigrating tab PO STA (12:17)
[2025-06-07 12:20] VITALS: BP 107/63; PULSE 64; RESP 16; TEMP 98.4; O2SAT 100
== END 2025-06-07 12:21 | disposition home or self-care (01) ==
LOC: ER 00:23
DX: A08.4 Viral intestinal infection, unspecified (principal); J45.909 Unspecified asthma, uncomplicated; F12.90 Cannabis use, unspecified, uncomplicated; Z88.0 Allergy status to penicillin; Z79.899 Other long term (current) drug therapy
CPT/HCPCS: 36415; 80053; 81003; 81025; 83690; 85025; 99283